=== PATIENT | male | born 1965 | race Two or more races ===

== ENCOUNTER 2020-07-03 04:43 | Inpatient (IN) | payer OTHER ==
[~2020-07-03] VITALS: Ht 185.4 cm; Wt 104.3 kg
[2020-07-03 04:50] VITALS: BP 147/90
--- NOTE | 2020-07-03 04:55 | Emergency Room Report ---
History of Present Illness General Chief Complaint: Abdominal Pain Source: Patient (Michelet Lester MD) Source: Patient (Namrata Smith D.O.) Present Illness HPI This is a 54-year-old male with a history of Crohn disease with previous bowel resection and reanastomosis. He presents with chief complaint abdominal pain. Onset today. Has nausea and vomiting. No bowel movement. Not passing gas. Pain is 10 out of 10. No history of bowel obstruction. He is currently not taking any medication for his Crohn's disease. (Michelet Lester MD) Allergies: Coded Allergies: SULFA (SULFONAMIDE ANTIBIOTICS) (Verified Allergy, Unknown, 07/03/20) COVID-19 Screening Contact w/high risk pt: No Experienced COVID-19 symptoms?: No COVID-19 Testing performed BODY SHOP FLOORPERSON: No (Michelet Lester MD) Patient History Past Medical History: see triage record, old chart reviewed Past Surgical History: other Pertinent Family History: none Social History: Denies: smoking Immunizations: other Reviewed Nursing Documentation: PMH: Agreed; PSxH: Agreed (Michelet Lester MD) Nursing Documentation-PMH Hx Hypertension: Yes Hx Diabetes: Yes (Michelet Lester MD) Review of Systems Eye: Denies: eye pain, blurred vision ENT: Denies: ear pain, nose congestion, throat swelling Respiratory: Denies: cough, shortness of breath Cardiovascular: Denies: chest pain, palpitations Gastrointestinal: Reports: abdominal pain, nausea, vomiting; Denies: diarrhea Musculoskeletal: Denies: back pain, joint pain Skin: Denies: rash Neurological: Denies: headache, numbness Endocrine: Denies: increased thirst, increased urine Hematologic/Lymphatic: Denies: easy bruising All Other Systems: negative except mentioned in HPI (Michelet Lester MD) Physical Exam Vital Signs Date Time Temp Pulse Resp B/P (MAP) Pulse Ox O2 Delivery O2 Flow Rate FiO2 07/03/20 04:44 97.9 97 18 136/94 (108) 98 Room Air Vitals normal Sp02 EP Interpretation: reviewed, normal General Appearance: well appearing, no apparent distress, alert Head: normocephalic, atraumatic Eyes: bilateral eye PERRL, bilateral eye EOMI ENT: hearing grossly normal, normal pharynx Neck: full range of motion, supple, no meningismus Respiratory: chest non-tender, lungs clear, normal breath sounds Cardiovascular #1: regular rate, rhythm, no murmur Gastrointestinal: no mass, no organomegaly, no bruit, non-distended, tenderness - Diffuse tenderness, decreased bowel sounds Musculoskeletal: back normal, normal range of motion, gait/station normal Psychiatric: mood/affect normal (Michelet Lester MD) Sp02 EP Interpretation: reviewed, normal (Namrata Smith D.O.) Medical Decision Making Diagnostic Impression: Primary Impression: SBO (small bowel obstruction) Additional Impressions: Crohn disease Nausea & vomiting Abdominal pain Qualified Codes: R10.84 - Generalized abdominal pain Constipation Hernia ER Course This patient presents with abdominal pain. He has a history of bowel resection secondary to his Crohn disease. This predisposed him for bowel obstruction. Labs unremarkable. Pain is well controlled now. CT scan is pending. I will sign this patient out to Dr. Smith. If CT scan is negative, patient may be discharged home. (Michelet Lester MD) ER Course I, Dr Namrata Smith, have assumed care of the patient. Initial workup, history , and physical performed by previous provider has been reviewed by myself and I have performed my own physical exam of the patient. Vital signs are within normal limits. Patient is afebrile. Abdominal examination is benign. Patient states he had pain around the umbilicus where his hernia was. There is no hernia to reduce on examination. Patient reports 0 out of 10 pain after using Dilaudid. Unable to tolerate PO. Lab evaluation is unremarkable. CT scan of the abdomen shows SBO with transition at ileocecal valve. NGT placed for gastric decompression. KUB shows NG tube in the fundus of stomach. Pt refuses to let us advance NGtube. Has drained 300mL of non bloody gastric content at this depth. Will admit to MS. Symptoms are not consistent with ACS. NO chest pain. The patient denies any bloody stool and has no pain out of proportion to exam, and no significant risk factors for mesenteric ischemia such as atrial fibrillation or severe PAD/PVD (peripheral arterial / vascular disease), thus definitive workup to rule out mesenteric ischemia was not pursued. Patient is afebrile, without any significant tenderness in the RUQ, and a negative Bryan sign. The patients presentation does not appear to be consistent with acute cholecystitis and thus definitive imaging to rule it out was not pursued. The patient has no significant risk factors for AAA (abdominal aortic aneurysm) such as age over 50 with history of hypertension, connective tissue disorder, or 1st degree relative with AAA. the patient has normal dorsalis pedis pulses, no radiation of pain to the back, and no pulsatile mass felt on exam. The patients profile was overall low risk for AAA and definitive workup was not pursued. I spoke with Dr. Rocha, and reviewed the patients presentation, workup, results, and treatment. They will admit the patient for further care and evaluation, and assume care of the patient at this time. I also spoke with our [employer] senior financial consultant, Dr. Soto who agrees to see and evaluate the patient. (Namrata Smith D.O.) Other X-Ray Diagnostic Results Other X-Ray Diagnostic Results : PA Scribe Text KUB Views: 1 view(s) Indication: NGT Findings: Normal heart size. Mediastinum normal. No infiltrate. NGTube Impression: NGtube in proximal gastric fundus. The X-ray(s) were independently viewed and interpreted contemporaneously Electronically signed by Namrata batres DO (Namrata Smith D.O.) CT/MRI/US Diagnostic Results CT/MRI/US Diagnostic Results : Impression CT Abdomen Pelvis WO Contrast FINDINGS: Lung bases: Unremarkable. ABDOMEN: Liver: Unremarkable. Gallbladder and bile ducts: Unremarkable. Pancreas: Unremarkable. Spleen: Unremarkable. Adrenals: Unremarkable. Kidneys and ureters: Incompletely characterized high attenuation lesion arising from the left renal cortex measuring 1.1 cm. Parapelvic cyst on the left kidney measuring 3.4 cm. No obstructing stones. No hydronephrosis. Stomach and bowel: Small bowel obstruction with dilatation up to 4.5 cm. Transition point at the ileocecal valve. No pneumatosis, portal venous gas, or free air. PELVIS: Appendix: Status post appendectomy. Bladder: Unremarkable. No stones. Reproductive: Unremarkable as visualized. ABDOMEN and PELVIS: Intraperitoneal space: No fluid collection or free air. Bones/joints: No acute fracture. Soft tissues: Unremarkable. Vasculature: Unremarkable. Lymph nodes: Unremarkable. IMPRESSION: 1. Small bowel obstruction with dilatation up to 4.5 cm. Transition point at the ileocecal valve. No pneumatosis, portal venous gas, or free air. 2. Incompletely characterized high attenuation lesion arising from the left renal cortex measuring 1.1 cm. Consider nonemergent renal ultrasound for further evaluation. Dictated By: Arnaud Garcia M.D. Electronically Signed By: Arnaud Garcia M.D. Signed Date/Time 07/03/20 0617 (Namrata Smith D.O.) Last Vital Signs Date Time Temp Pulse Resp B/P (MAP) Pulse Ox O2 Delivery O2 Flow Rate FiO2 07/03/20 04:44 97.9 97 18 136/94 (108) 98 Room Air Status: improved (Michelet Lester MD) Reevaluation Time: 06:16 Status: improved (Namrata Smith D.O.) Disposition: ADMITTED INPATIENT Admit Decision Time: 06:16 (Namrata Smith D.O.) Condition: Serious Michelet Lester MD Jul 03, 2020 04:55 Namrata Smith D.O. Jul 03, 2020 06:20
[2020-07-03] MEDS ORDERED: HYDROmorphone 1mg/ml Carpuject IVP ONE (05:00)
[2020-07-03 05:05] LABS: BASOPHILS % (AUTO) 0.4 % (0.0-2.0); EOSINOPHILS % (AUTO) 0.6 % (0.0-3.0); HEMATOCRIT 43.6 % (42.0-52.0); HEMOGLOBIN 15.4 G/DL (14.2-18.0); MEAN CORPUSCULAR VOLUME 85 FL (80-99); MONOCYTES % (AUTO) 4.2 % (1.0-10.0); NEUTROPHILS % (AUTO) 77.8 % (45.0-75.0); PLATELET COUNT 248 K/UL (150-450); RED BLOOD COUNT 5.11 M/UL (4.70-6.10); RED CELL DISTRIBUTION WIDTH 11.6 % (11.6-14.8); WHITE BLOOD COUNT 12.3 K/UL (4.8-10.8)
[2020-07-03 05:15] LABS: ANION GAP 11 mmol/L (5-15); BLOOD UREA NITROGEN 16 mg/dL (7-18); CALCIUM 9.4 MG/DL (8.5-10.1); CARBON DIOXIDE 24 MMOL/L (21-32); CHLORIDE 104 MMOL/L (98-107); CREATININE 0.9 MG/DL (0.55-1.30); POTASSIUM 3.8 MMOL/L (3.5-5.1); SODIUM 139 MMOL/L (136-145)
[2020-07-03 05:18] LABS: ALANINE AMINOTRANSFERASE 30 U/L (12-78); ALBUMIN 3.8 G/DL (3.4-5.0); ALBUMIN/GLOBULIN RATIO 1.1 (1.0-2.7); ALKALINE PHOSPHATASE 70 U/L (46-116); ASPARTATE AMINO TRANSFERASE 25 U/L (15-37); BILIRUBIN,TOTAL 0.6 MG/DL (0.2-1.0)
[2020-07-03] MEDS ORDERED: COLACE100 MG ORAL (06:18)
[2020-07-03] MEDS ORDERED: ONDANSETRON ODT4 MG BC (06:18)
--- NOTE | 2020-07-03 06:18 | Diagnostic Imaging Report ---
EXAM: CT Abdomen and Pelvis Without Intravenous Contrast CLINICAL HISTORY: ABD PAIN TECHNIQUE: Axial computed tomography images of the abdomen and pelvis without intravenous contrast. CTDI is 11.50 mGy and DLP is 652.50 mGy-cm. One or more of the following dose reduction techniques were used: automated exposure control, adjustment of the mA and/or kV according to patient size, use of iterative reconstruction technique. COMPARISON: No relevant prior studies available. FINDINGS: Lung bases: Unremarkable. ABDOMEN: Liver: Unremarkable. Gallbladder and bile ducts: Unremarkable. Pancreas: Unremarkable. Spleen: Unremarkable. Adrenals: Unremarkable. Kidneys and ureters: Incompletely characterized high attenuation lesion arising from the left renal cortex measuring 1.1 cm. Parapelvic cyst on the left kidney measuring 3.4 cm. No obstructing stones. No hydronephrosis. Stomach and bowel: Small bowel obstruction with dilatation up to 4.5 cm. Transition point at the ileocecal valve. No pneumatosis, portal venous gas, or free air. PELVIS: Appendix: Status post appendectomy. Bladder: Unremarkable. No stones. Reproductive: Unremarkable as visualized. ABDOMEN and PELVIS: Intraperitoneal space: No fluid collection or free air. Bones/joints: No acute fracture. Soft tissues: Unremarkable. Vasculature: Unremarkable. Lymph nodes: Unremarkable. IMPRESSION: 1. Small bowel obstruction with dilatation up to 4.5 cm. Transition point at the ileocecal valve. No pneumatosis, portal venous gas, or free air. 2. Incompletely characterized high attenuation lesion arising from the left renal cortex measuring 1.1 cm. Consider nonemergent renal ultrasound for further evaluation.
[2020-07-03] MEDS ORDERED: Morphine Sulfate 4mg/ml Inj (IV USE ONLY) IVP ONE (07:15)
[2020-07-03] MEDS ORDERED: trintellix (07:22)
[2020-07-03] MEDS ORDERED: FLOMAX0.4 MG ORAL (07:22)
[2020-07-03 07:31] VITALS: BP 151/94
[2020-07-03] MEDS ORDERED: LORazepam Inj 2mg/ml 1ml ONE (07:52)
[2020-07-03] MEDS ORDERED: Metoclopramide 10mg/2ml Inj ONE (07:52)
[2020-07-03] MEDS ORDERED: Metoclopramide 10mg/2ml Inj IVP ONE (08:00)
[2020-07-03] MEDS ORDERED: LORazepam Inj 2mg/ml 1ml IV ONE (08:00)
[2020-07-03] MEDS ORDERED: BUTRANS1 EAC2 TD (09:17)
[2020-07-03 09:27] VITALS: BP 150/90
--- NOTE | 2020-07-03 10:24 | Diagnostic Imaging Report ---
Indication: Post nasogastric tube Technique: Supine view of the upper abdomen Comparison: none Findings: There is a nasogastric tube, tip projected in satisfactory position in the gastric fundus. Single prominent gas-filled left upper quadrant small bowel loops is demonstrated. Impression: Satisfactory nasogastric intubation Dilated gas-filled left upper quadrant small bowel loop, consistent with small bowel obstruction described on recent CT scan
[2020-07-03] MEDS ORDERED: BUPRENORPHINE HC8 MG SL (11:18)
[2020-07-03 12:00] VITALS: BP 119/71
[2020-07-03] MEDS ORDERED: D5NS 1,000 ML IV SCH (12:30)
[2020-07-03] MEDS ORDERED: Acetaminophen 650 MG SUPP RECTAL PRN (12:30)
--- NOTE | 2020-07-03 13:46 | Consultation ---
History of Present Illness General Date patient seen: Jul 03, 2020 Reason for Hospitalization: Abdominal Pain Present Illness HPI This is a pleasant 54-year-old male with known history of Crohn's colitis who presented to [facility] with worsening abdominal pain nausea and obstipation. Patient states that he was first diagnosed with Crohn's in the late 70s early 80s after abdominal pain and was started on treatment 1982 requiring hospitalization at that time for a few months further subsequently worsened in 1985 had a exploration with bowel resection where he states of the surgeon told him the bowel disintegrated in his hands. He has been well since but untreated for significant period of time noncompliant with care plans until recently when he is a few weeks ago decided to begin therapy. 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 Had a recent colonoscopy which he states did not show anything. Had a recent CT scan for renal cyst and states did not show anything otherwise in the bowel at that time in which she had oral contrast as well. States approximately 2 days ago began with abdominal pain with nausea and nonbloody emesis. Has not had a bowel movement or flatus in 2 days. Furthermore states that he is recently been started on a opioid derivative Suboxone medication for depression and states that the medication itself is approved for opioid dependency but off label use for depression pain described as cramping generalized abdominal pain feels distended. Pain 6 out of [address] scan emergency room identified by obstruction. Allergies: Coded Allergies: SULFA (SULFONAMIDE ANTIBIOTICS) (Verified Allergy, Unknown, 07/03/20) COVID-19 Screening Contact w/high risk pt: No Experienced COVID-19 symptoms?: No Medication History Scheduled Tamsulosin HCl (Flomax), 0.4 MG ORAL DAILY, (Reported) Scheduled PRN Buprenorphine Hcl (Buprenorphine Hcl), 8 MG SL DAILY PRN for tid, (Reported) Miscellaneous Medications [trintellix], (Reported) Discontinued Medications Buprenorphine (Butrans), 1 EACH TD, (Reported) Discontinued Reason: Pt stopped taking med Docusate Sodium* (Colace*), 100 MG ORAL THREE TIMES A DAY Discontinued Reason: Medication dose changed Ondansetron Odt* (Zofran Odt*), 4 MG BC EVERY 6 HOURS PRN for Nausea & Vomiting Discontinued Reason: Medication dose changed Patient History History Provided By: Patient Healthcare decision maker Resuscitation status Advanced Directive on File Past Medical/Surgical History Past Medical/Surgical History: (1) Crohn disease (2) Hernia (3) Constipation (4) SBO (small bowel obstruction) (5) Abdominal pain (6) Nausea & vomiting Review of Systems Review of Symptoms General ROS: no weight loss or fever Psychological ROS: no depression or mood changes, no memory loss Ophthalmic ROS: no visual changes or eye irritation ENT ROS: no nasal congestion, hearing loss, dizziness Allergy and Immunology ROS: no allergic symptoms or urticaria Hematological and Lymphatic ROS: no swollen glands, unusual bleeding or bruising Endocrine ROS: no polyuria, polydipsia, weight changes, temperature intolerance Respiratory ROS: no cough, shortness of breath, or wheezing Cardiovascular ROS: no chest pain or dyspnea on exertion Gastrointestinal ROS: + abdominal pain,no bright red blood in stool. Musculoskeletal ROS: no myalgias or arthralgias Neurological ROS: no TIA or stroke symptoms Dermatological ROS: no new or changing skin lesions, rashes or pruritis Physical Exam Physical Exam General appearance: alert, cooperative, no distress, appears stated age Head: Normocephalic, without obvious abnormality, atraumatic Eyes: conjunctivae/corneas clear. PERRL, EOM's intact. Fundi benign Throat: Lips, mucosa, and tongue normal. Teeth and gums normal Neck: supple, symmetrical, trachea midline, no adenopathy, thyroid: not enlarged, symmetric, no tenderness/mass/nodules, no carotid bruit and no JVD Lungs: clear to auscultation bilaterally Heart: regular rate and rhythm, S1, S2 normal, no murmur, click, rub or gallop Abdomen: soft, generalized tender with more focal in RLQ. Bowel sounds normal. No masses, no organomegaly. prior right transverse incision well healed. distended Extremities: extremities normal, atraumatic, no cyanosis or edema Pulses: 2+ and symmetric Skin: Skin color, texture, turgor normal. No rashes or lesions Neurologic: Grossly normal Last 24 Hour Vital Signs Date Time Temp Pulse Resp B/P (MAP) Pulse Ox O2 Delivery O2 Flow Rate FiO2 07/03/20 12:00 97.2 67 18 119/71 (87) 98 07/03/20 11:03 Room Air 07/03/20 09:28 97.3 86 18 151/94 100 Room Air 07/03/20 09:27 97.3 86 18 150/90 96 Room Air 07/03/20 07:50 97.3 07/03/20 07:31 97.3 75 18 151/94 100 Room Air 07/03/20 05:31 97.9 07/03/20 04:50 97 18 Room Air 07/03/20 04:50 97.3 88 18 147/90 98 Room Air 07/03/20 04:44 97.9 97 18 136/94 (108) 98 Room Air Laboratory Tests Test 07/03/20 04:24 07/03/20 04:53 Sodium Level 139 MMOL/L (136-145) Potassium Level 3.8 MMOL/L (3.5-5.1) Chloride Level 104 MMOL/L (98-107) Carbon Dioxide Level 24 MMOL/L (21-32) Anion Gap 11 mmol/L (5-15) Blood Urea Nitrogen 16 mg/dL (7-18) Creatinine 0.9 MG/DL (0.55-1.30) Estimat Glomerular Filtration Rate > 60 mL/min (>60) Glucose Level 139 MG/DL (74-106) H Calcium Level 9.4 MG/DL (8.5-10.1) Total Bilirubin 0.6 MG/DL (0.2-1.0) Aspartate Amino Transf (AST/SGOT) 25 U/L (15-37) Alanine Aminotransferase (ALT/SGPT) 30 U/L (12-78) Alkaline Phosphatase 70 U/L (46-116) Total Protein 7.4 G/DL (6.4-8.2) Albumin 3.8 G/DL (3.4-5.0) Globulin 3.6 g/dL Albumin/Globulin Ratio 1.1 (1.0-2.7) Lipase 90 U/L (73-393) White Blood Count 12.3 K/UL (4.8-10.8) H Red Blood Count 5.11 M/UL (4.70-6.10) Hemoglobin 15.4 G/DL (14.2-18.0) Hematocrit 43.6 % (42.0-52.0) Mean Corpuscular Volume 85 FL (80-99) Mean Corpuscular Hemoglobin 30.1 PG (27.0-31.0) Mean Corpuscular Hemoglobin Concent 35.3 G/DL (32.0-36.0) Red Cell Distribution Width 11.6 % (11.6-14.8) Platelet Count 248 K/UL (150-450) Mean Platelet Volume 6.3 FL (6.5-10.1) L Neutrophils (%) (Auto) 77.8 % (45.0-75.0) H Lymphocytes (%) (Auto) 17.0 % (20.0-45.0) L Monocytes (%) (Auto) 4.2 % (1.0-10.0) Eosinophils (%) (Auto) 0.6 % (0.0-3.0) Basophils (%) (Auto) 0.4 % (0.0-2.0) Microbiology Date/Time Source Procedure Growth Status 07/03/20 07:20 Nasopharynx SARS-CoV-2 RdRp Gene Assay - Final Complete Height (Feet): 6 Height (Inches): 1.00 Weight (Pounds): 230 Medications Current Medications Medications (Trade) Dose Ordered Sig/Jason Route PRN Reason Start Time Stop Time Status Last Admin Dose Admin Acetaminophen (Tylenol) 650 mg Q4H PRN RECTAL Mild Pain (Pain Scale 1-3) 07/03/20 12:30 08/02/20 12:29 Dextrose/Sodium Chloride 1,000 ml @ 100 mls/hr Q10H IV 07/03/20 12:30 08/02/20 12:29 Hydromorphone HCl (Dilaudid) 2 mg Q4H PRN IVP Severe Pain (Pain Scale 7-10) 07/03/20 12:30 07/10/20 12:29 Ondansetron HCl (Zofran) 4 mg Q4H PRN IVP Nausea & Vomiting 07/03/20 12:30 08/02/20 12:29 Assessment/Plan Problem List: (1) Crohn disease ICD Codes: K50.90 - Crohn's disease, unspecified, without complications SNOMED: 02540582 (2) Hernia ICD Codes: K46.9 - Unspecified abdominal hernia without obstruction or gangrene SNOMED: 69414968 (3) Constipation ICD Codes: K59.00 - Constipation, unspecified SNOMED: 46806074 (4) SBO (small bowel obstruction) Assessment & Plan: 54-year-old male with bowel obstruction. History of Crohn' s colitis for significant period of time greater than 3 decades gone untreated poor compliance history of exploratory laparotomy with bowel resection secondary to Crohn's disease. History of known stricture as per patient. Currently nausea and emesis nonbloody. Currently no bowel movement or flatus in over 2 days. Distended abdominal tender focally in the right lower quadrant worse in the remainder the abdomen. CT reviewed personally so if equalization of the small bowel identified. Near complete obstruction noted. Given this surgery has been indicated and recommended. I long discussion with patient the bedside regards to his care plan. Surgery has been recommended and currently undergoing NG tube decompression. The risk-benefit alternatives surgery have been discussed including potential for ostomy depending on operative findings. Patient has expressed understanding but at this time wants further time to speak with this family and prior to making any surgical decisions. Patient states he wants medical therapy at this time only with IV fluids ice chips NG tube decompression and will consider surgery but has not consented to it at this time. Significant period time spent with patient at the bedside greater than 45 minutes in discussing his history and care plan. Surgical intervention was discussed in detail and highly recommended though patient has not decided at this time. Will follow with recommendations. N.p.o. IV fluids IV antibiotics NG tube decompression A.m. JESSE Thank you fine partition patient's care ICD Codes: K56.609 - Unspecified intestinal obstruction, unspecified as to partial versus complete obstruction SNOMED: 474768506 (5) Abdominal pain Assessment & Plan: ABDOMEN: Liver: Unremarkable. Gallbladder and bile ducts: Unremarkable. Pancreas: Unremarkable. Spleen: Unremarkable. Adrenals: Unremarkable. Kidneys and ureters: Incompletely characterized high attenuation lesion arising from the left renal cortex measuring 1.1 cm. Parapelvic cyst on the left kidney measuring 3.4 cm. No obstructing stones. No hydronephrosis. Stomach and bowel: Small bowel obstruction with dilatation up to 4.5 cm. Transition point at the ileocecal valve. No pneumatosis, portal venous gas, or free air. PELVIS: Appendix: Status post appendectomy. Bladder: Unremarkable. No stones. Reproductive: Unremarkable as visualized. ABDOMEN and PELVIS: Intraperitoneal space: No fluid collection or free air. Bones/joints: No acute fracture. Soft tissues: Unremarkable. Vasculature: Unremarkable. Lymph nodes: Unremarkable. IMPRESSION: 1. Small bowel obstruction with dilatation up to 4.5 cm. Transition point at the ileocecal valve. No pneumatosis, portal venous gas, or free air. 2. Incompletely characterized high attenuation lesion arising from the left renal cortex measuring 1.1 cm. Consider nonemergent renal ultrasound for further evaluation. ICD Codes: R10.9 - Unspecified abdominal pain SNOMED: 86845818 Qualifiers: Qualified Codes: R10.84 - Generalized abdominal pain (6) Nausea & vomiting ICD Codes: R11.2 - Nausea with vomiting, unspecified SNOMED: 18958532 Marvel Soto Jul 03, 2020 13:46
[2020-07-03 16:00] VITALS: BP 127/83
--- NOTE | 2020-07-03 18:14 | History and Physical Report ---
DATE OF ADMISSION: 07/03/2020 CHIEF COMPLAINT: Abdominal pain. The patient is a 54-year-old male. He has a history of Crohn disease, prior history of exploratory laparotomy with resection of a part of his bowel, presents with complaints of worsening abdominal pain for the last several days. The patient has a prior history of Crohn disease and previously required an exploratory laparoscopy. He has been doing well for several years. He recently saw a new GI physician. There have been no changes in his treatment. He has not been on any specific medications for several years. Several days ago, he developed worsening mid-epigastric abdominal pain. He has not had any bowel movements or been able to pass any gas. He presented to the emergency room. There, vital signs were stable. His white count was elevated at 12,000. CT scan of the abdomen showed small bowel obstruction with dilation up to 4.5 cm with the transition point at the ileocecal valve. An NG tube has been placed. The patient is now admitted for further evaluation and care. PAST MEDICAL HISTORY: As above. PAST SURGICAL HISTORY: As above. CURRENT MEDICATIONS: None. FAMILY HISTORY: None. SOCIAL HISTORY: Negative for tobacco, ethanol, or drugs. ALLERGIES: The patient has allergies to sulfa. REVIEW OF SYSTEMS: GENERAL: No fevers or chills. HEENT: No headaches or visual changes. CARDIOPULMONARY: No chest pain or shortness of breath. GASTROINTESTINAL: No nausea or vomiting. Positive abdominal pain. No melena. No bright red blood per rectum. GENITOURINARY: No urgency or frequency. VASCULAR: No joint pain or swelling. NEUROLOGIC: No evidence of seizures. PHYSICAL EXAMINATION: VITAL SIGNS: Temperature 98, pulse 72, respirations 18, and blood pressure 119/71. GENERAL: The patient is well developed, in moderate amount of distress due to pain. HEENT: Head is normocephalic, atraumatic. NECK: Supple. HEART: Regular rate and rhythm. LUNGS: Clear. ABDOMEN: Soft with diminished bowel sounds. The patient has generalized tenderness, but no rebound or guarding. EXTREMITIES: No clubbing, cyanosis, or edema. LABORATORY DATA: White count 12, hemoglobin 15, hematocrit 43, platelets 248. Sodium 139, potassium 3.8, chloride 104, bicarb 24, BUN 16, creatinine 0.9. ASSESSMENT: This is a 54-year-old male with a history of Crohn disease with complaints of abdominal pain secondary to small-bowel obstruction. PLAN: IV hydration. NG tube to low intermittent suction. DVT and stress ulcer prophylaxis. IV pain medications, antiemetics. Surgical consultation. Cardiology consultation for clearance. Possible surgery if clinical course does not improve. Polo Rocha M.D. DR: ANALILIA JOB#: [id number] CC:
[2020-07-03 20:00] VITALS: BP 139/81
[2020-07-04] VITALS: BP 129/74
[2020-07-04 04:00] VITALS: BP 126/76
[2020-07-04 08:00] VITALS: BP 135/89
--- NOTE | 2020-07-04 08:08 | General Progress Note ---
Assessment/Plan Problem List: (1) Crohn disease ICD Codes: K50.90 - Crohn's disease, unspecified, without complications SNOMED: 06389128 (2) Hernia ICD Codes: K46.9 - Unspecified abdominal hernia without obstruction or gangrene SNOMED: 66274743 (3) Constipation ICD Codes: K59.00 - Constipation, unspecified SNOMED: 46747179 (4) SBO (small bowel obstruction) ICD Codes: K56.609 - Unspecified intestinal obstruction, unspecified as to partial versus complete obstruction SNOMED: 527347496 (5) Abdominal pain ICD Codes: R10.9 - Unspecified abdominal pain SNOMED: 09618250 Qualifiers: Qualified Codes: R10.84 - Generalized abdominal pain (6) Nausea & vomiting ICD Codes: R11.2 - Nausea with vomiting, unspecified SNOMED: 82495246 Status: stable Assessment/Plan: stat kub ngt to LIS dvt/stress ulcer prophylaxis pain and nausea rx possible surgery Subjective ROS Limited/Unobtainable: No Constitutional: Reports: malaise, weakness HEENT: Reports: no symptoms Cardiovascular: Reports: no symptoms Respiratory: Reports: no symptoms Gastrointestinal/Abdominal: Reports: abdomen distended, abdominal pain Genitourinary: Reports: no symptoms Neurologic/Psychiatric: Reports: no symptoms Endocrine: Reports: no symptoms Hematologic/Lymphatic: Reports: no symptoms Allergies: Coded Allergies: SULFA (SULFONAMIDE ANTIBIOTICS) (Verified Allergy, Unknown, 07/03/20) All Systems: reviewed and negative except above Subjective +abd pain. minimal output from ngt. states he passed small amount of gas. Objective Last 24 Hour Vital Signs Date Time Temp Pulse Resp B/P (MAP) Pulse Ox O2 Delivery O2 Flow Rate FiO2 07/04/20 04:00 98.6 76 19 126/76 (93) 94 07/04/20 00:00 98.8 78 19 129/74 (92) 94 07/03/20 21:00 Room Air 07/03/20 20:00 98.6 83 19 139/81 (100) 94 07/03/20 16:00 98.0 87 19 127/83 (98) 98 07/03/20 12:00 97.2 67 18 119/71 (87) 98 07/03/20 11:03 Room Air 07/03/20 09:28 97.3 86 18 151/94 100 Room Air 07/03/20 09:27 97.3 86 18 150/90 96 Room Air Intake and Output 07/03/20 07/04/20 18:59 06:59 Intake Total 400 ml 1100 ml Output Total 50 ml 1550 ml Balance 350 ml -450 ml Intake IV Total 400 ml 1100 ml Output Urine Total 1500 ml Gastric Drainage Total 50 ml 50 ml # Voids 1 4 Height (Feet): 6 Height (Inches): 1.00 Weight (Pounds): 230 General Appearance: WD/WN, no apparent distress, alert EENT: PERRL/EOMI Neck: supple Cardiovascular: normal peripheral pulses Respiratory/Chest: chest wall non-tender, lungs clear, normal breath sounds, no respiratory distress Abdomen: soft, hyperactive bowel sounds, tender Edema: no edema noted Arm (L), no edema noted Arm (R) Neurologic: car parker II-XII grossly normal, no motor/sensory deficits, alert, oriented x 3 Polo Rocha MD Jul 04, 2020 08:08
[2020-07-04 09:21] LABS: ALANINE AMINOTRANSFERASE 25 U/L (12-78); ALBUMIN 3.3 G/DL (3.4-5.0); ALBUMIN/GLOBULIN RATIO 0.9 (1.0-2.7); ALKALINE PHOSPHATASE 60 U/L (46-116); ANION GAP 7 mmol/L (5-15); ASPARTATE AMINO TRANSFERASE 16 U/L (15-37); BILIRUBIN,TOTAL 0.6 MG/DL (0.2-1.0); BLOOD UREA NITROGEN 11 mg/dL (7-18); CARBON DIOXIDE 28 MMOL/L (21-32); CHLORIDE 105 MMOL/L (98-107); CREATININE 0.9 MG/DL (0.55-1.30); POTASSIUM 3.7 MMOL/L (3.5-5.1); SODIUM 140 MMOL/L (136-145)
[2020-07-04 12:00] VITALS: BP 130/80
[2020-07-04] MEDS ORDERED: Pantoprazole Inj IVP SCH (13:00)
--- NOTE | 2020-07-04 13:28 | Surgery Progress Note ---
Surgery Progress Note Subjective Additional Comments Patient seen and examined bedside. No acute events. Does not feel better or worse. No nausea vomiting fever chills. Labs noted. Transfer for [facility] initiated. Case discussed with patient's primary care physician Dr. Pollard at [phone]. Thinks he may have passed flatus. No bowel movement. Objective Last 24 Hour Vital Signs Date Time Temp Pulse Resp B/P (MAP) Pulse Ox O2 Delivery O2 Flow Rate FiO2 07/04/20 09:00 Room Air 07/04/20 08:00 98.0 79 18 135/89 (104) 95 07/04/20 04:00 98.6 76 19 126/76 (93) 94 07/04/20 00:00 98.8 78 19 129/74 (92) 94 07/03/20 21:00 Room Air 07/03/20 20:00 98.6 83 19 139/81 (100) 94 07/03/20 16:00 98.0 87 19 127/83 (98) 98 I&O Intake and Output 07/03/20 07/04/20 19:00 07:00 Intake Total 400 ml 1100 ml Output Total 50 ml 1550 ml Balance 350 ml -450 ml Intake IV Total 400 ml 1100 ml Output Urine Total 1500 ml Gastric Drainage Total 50 ml 50 ml # Voids 1 4 Cardiovascular: RSR Respiratory: clear Abdomen: soft, distended, tenderness, decreased bowel sounds Extremities: no edema, no tenderness, no cyanosis Laboratory Tests Test 07/04/20 08:45 Sodium Level 140 MMOL/L (136-145) Potassium Level 3.7 MMOL/L (3.5-5.1) Chloride Level 105 MMOL/L (98-107) Carbon Dioxide Level 28 MMOL/L (21-32) Anion Gap 7 mmol/L (5-15) Blood Urea Nitrogen 11 mg/dL (7-18) Creatinine 0.9 MG/DL (0.55-1.30) Estimat Glomerular Filtration Rate > 60 mL/min (>60) Glucose Level 139 MG/DL (74-106) H Calcium Level 9.0 MG/DL (8.5-10.1) Total Bilirubin 0.6 MG/DL (0.2-1.0) Aspartate Amino Transf (AST/SGOT) 16 U/L (15-37) Alanine Aminotransferase (ALT/SGPT) 25 U/L (12-78) Alkaline Phosphatase 60 U/L (46-116) Total Protein 6.9 G/DL (6.4-8.2) Albumin 3.3 G/DL (3.4-5.0) L Globulin 3.6 g/dL Albumin/Globulin Ratio 0.9 (1.0-2.7) L Plan Problems: (1) Crohn disease (2) Hernia (3) Constipation (4) SBO (small bowel obstruction) Assessment & Plan: 54-year-old male with bowel obstruction. History of Crohn' s colitis for significant period of time greater than 3 decades gone untreated poor compliance history of exploratory laparotomy with bowel resection secondary to Crohn's disease. History of known stricture as per patient. Currently nausea and emesis nonbloody. Currently no bowel movement or flatus in over 2 days. Distended abdominal tender focally in the right lower quadrant worse in the remainder the abdomen. CT reviewed personally so if equalization of the small bowel identified. Near complete obstruction noted. Given this surgery has been indicated and recommended. I long discussion with patient the bedside regards to his care plan. Surgery has been recommended and currently undergoing NG tube decompression. The risk-benefit alternatives surgery have been discussed including potential for ostomy depending on operative findings. Patient has expressed understanding but at this time wants further time to speak with this family and prior to making any surgical decisions. Patient states he wants medical therapy at this time only with IV fluids ice chips NG tube decompression and will consider surgery but has not consented to it at this time. Significant period time spent with patient at the bedside greater than 45 minutes in discussing his history and care plan. Surgical intervention was discussed in detail and highly recommended though patient has not decided at this time. Will follow with recommendations. N.p.o. IV fluids IV antibiotics NG tube decompression A.m. JESSE Thank you fine partition patient's care Patient has not opened up. JESSE noted. NG tube needs to be advanced. Potential transfer to [facility]. In the meantime will obtain upper GI contrast Gastrografin study small bowel follow-through for evaluation. Potential non- complete obstruction. Okay to transfer to [facility] of bed is obtained. Case discussed with patient detail at the bedside including his primary care physician as well. (5) Abdominal pain Assessment & Plan: ABDOMEN: Liver: Unremarkable. Gallbladder and bile ducts: Unremarkable. Pancreas: Unremarkable. Spleen: Unremarkable. Adrenals: Unremarkable. Kidneys and ureters: Incompletely characterized high attenuation lesion arising from the left renal cortex measuring 1.1 cm. Parapelvic cyst on the left kidney measuring 3.4 cm. No obstructing stones. No hydronephrosis. Stomach and bowel: Small bowel obstruction with dilatation up to 4.5 cm. Transition point at the ileocecal valve. No pneumatosis, portal venous gas, or free air. PELVIS: Appendix: Status post appendectomy. Bladder: Unremarkable. No stones. Reproductive: Unremarkable as visualized. ABDOMEN and PELVIS: Intraperitoneal space: No fluid collection or free air. Bones/joints: No acute fracture. Soft tissues: Unremarkable. Vasculature: Unremarkable. Lymph nodes: Unremarkable. IMPRESSION: 1. Small bowel obstruction with dilatation up to 4.5 cm. Transition point at the ileocecal valve. No pneumatosis, portal venous gas, or free air. 2. Incompletely characterized high attenuation lesion arising from the left renal cortex measuring 1.1 cm. Consider nonemergent renal ultrasound for further evaluation. (6) Nausea & vomiting Marvel Soto Jul 04, 2020 13:28
[2020-07-04] MEDS ORDERED: Dextrose 5%/Lactated Ringer's 1,000 ML IV SCH (14:00)
[2020-07-04 16:00] VITALS: BP 131/83
[2020-07-04] MEDS ORDERED: ACETAMINOPHEN500 M5 RECTAL (16:16)
[2020-07-04] MEDS ORDERED: PROTONIX40 M1 IVP (16:21)
[2020-07-04] MEDS ORDERED: HYDROMORPHO2 MG/1 M5 IVP (16:24)
[2020-07-04] MEDS ORDERED: ONDANSETRON4 MG/2 M2 IVP (16:25)
--- NOTE | 2020-07-04 16:25 | Diagnostic Imaging Report ---
Indication: Abdominal pain Technique: Supine view of the abdomen Comparison: 07/03/2020 Findings: Prominent small bowel loops are again demonstrated in the left upper quadrant, slightly different in configuration and perhaps a slightly more gas than previously. Dense stool is seen in the rectum. Impression: Nonspecific prominent left upper quadrant small bowel loops, slightly increased from previous exam.
[2020-07-04] MEDS ORDERED: Heparin 5000 units/ml inj SUBQ SCH (21:00)
--- NOTE | 2020-07-06 14:06 | Discharge Summary ---
Discharge Summary Discharge Summary _ DATE OF ADMISSION: 07/03/2020 DATE OF DISCHARGE: 07/04/2020 DISCHARGED BY: Dr. Polo Rocha CONSULTANTS: Dr. Marvel Soto BRIEF HOSPITAL COURSE: Patient is a 54-year-old male, with history of Crohn's disease, prior history of exploratory laparotomy with resection of part of his bowel, presented to ED with complaints of worsening abdominal pain for the last several days. Patient has been doing well for several years. He recently saw a new GI specialist. No recent change in his treatment. He has not been on any specific medications for the past several years. Several days ago, he developed worsening midepigastric abdominal pain. He has not had any bowel movements or been able to pass any gas. He did presented to ED for further evaluation Upon evaluation at ED, vital signs were stable. Patient was afebrile. Lab evaluation was unremarkable. CT scan of the abdomen showed small bowel obstruction with transition at the ileocecal valve. NGT was placed for gastric decompression pression. KUB showed NG tube in the fundus of the stomach. Patient was then admitted for small bowel obstruction. He was admitted to medical floor. He was placed on n.p.o. NG tube connected to low intermittent suction. He was given IV hydration. He was given pain management. There was minimal output from NGT. Patient stated he was able to pass a small amount of gas. Stat KUB showed nonspecific prominent left upper quadrant small bowel loops, slightly increased from previous exam. He was eventually transferred to [facility]. FINAL DIAGNOSES: Small bowel obstruction Crohn's disease Constipation Umbilical hernia DISPOSITION: Patient was transferred to [facility]. DISCHARGE MEDICATIONS: Refer to Discharge Medication List. I have been assigned to complete a discharge summary on this account, I was not involved with the patient's management.--MARK Bashir Jacqueline Robles NP Jul 06, 2020 14:05
== END 2020-07-04 17:57 | disposition short-term general hospital (02) | DRG 389 ==
LOC: EDBD 04:43 → EMR 05:11 → 4E 06:44 → EDBEDREQ 08:42 → 4E 10:08
DX: K56.609 Unspecified intestinal obstruction, unspecified as to partial versus complete obstruction (principal); K50.90 Crohn's disease, unspecified, without complications; K59.00 Constipation, unspecified; K42.9 Umbilical hernia without obstruction or gangrene; Z88.2 Allergy status to sulfonamides
CPT/HCPCS: 36415; 74018; 74176; 80053; 83690; 85025; 96361; 96374; 96375; 96376; 99285; J2405; J2765; J7030; U0002